=== PATIENT | male | born 2000 ===

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

== ENCOUNTER 2019-02-16 16:00 | Emergency (ER) | payer SELFPAY ==
[2019-02-16 16:00] VITALS: BMI 39.0
[2019-02-16 16:15] VITALS: O2SAT 96
--- NOTE | 2019-02-16 17:23 | C.PDOC ---
History Of Present Illness 18 y/o male presents to the ER for evaluation of head injury which occurred earlier today. Patient states that he tripped and fell hitting his head on a glass table at his home. Patient reports that he had LOC. He notes that he has headache and dizziness. Denies having visual changes, neck pain, CP, SOB, abdominal pain, difficulty ambulating, nausea, and vomiting. Patient states he went to work and told his coworkers what happened and they told him to go the ED for evaluation. - HPI Time Seen by Provider: 02/16/19 16:16 Chief Complaint (Nursing): Trauma History Per: Patient History/Exam Limitations: no limitations Onset/Duration Of Symptoms: Hrs Severity: Moderate Past Medical History Reviewed: Historical Data, Nursing Documentation, Vital Signs Vital Signs: Last Vital Signs Temp 98.7 F 02/16/19 16:08 Pulse 93 H 02/16/19 16:08 Resp 20 02/16/19 16:08 BP 157/112 H 02/16/19 16:08 Pulse Ox 96 02/16/19 16:08 Primary Care Provider: FAMILY PROVIDER,NO - Medical History PMH: No Chronic Diseases Surgical History: No Surg Hx Family History: States: No Known Family Hx - Social History Hx Alcohol Use: No Hx Substance Use: No - Immunization History Hx Tetanus Toxoid Vaccination: Yes Hx Influenza Vaccination: Yes Hx Pneumococcal Vaccination: No Review Of Systems Except As Marked, All Systems Reviewed And Found Negative. Constitutional: Negative for: Fever, Chills Cardiovascular: Negative for: Chest Pain Respiratory: Negative for: Hemoptysis Gastrointestinal: Negative for: Nausea, Vomiting Neurological: Positive for: Headache, Dizziness Physical Exam - Physical Exam Appears: Non-toxic, No Acute Distress Skin: Normal Color, Warm, Dry Head: Atraumatic, Normacephalic Eye(s): bilateral: Normal Inspection, PERRL, EOMI Nose: Normal Oral Mucosa: Moist Neck: Normal ROM, No Midline Cervical Tenderness, Supple Chest: Symmetrical Cardiovascular: Rhythm Regular Respiratory: Normal Breath Sounds, No Rales, No Rhonchi, No Wheezing Gastrointestinal/Abdominal: Normal Exam, Soft, No Tenderness, No Guarding, No Rebound Male Genital: Normal Inspection Extremity: Normal ROM, No Tenderness Neurological/Psych: Oriented x3, Normal Speech, Normal Cognition, Normal Cranial Nerves, No Cerebellar Signs, Normal Motor, Normal Sensation Gait: Steady ED Course And Treatment O2 Sat by Pulse Oximetry: 96 (RA) Pulse Ox Interpretation: Normal - CT Scan/US CT-Head Other Rad Studies (CT/US): Read By Radiologist, Radiology Report Reviewed CT/US Interpretation: Date of service: 02/16/2019. PROCEDURE: CT HEAD WITHOUT CONTRAST. HISTORY: head injury. COMPARISON: Noncontrast head CT performed 06/20/17. TECHNIQUE: Axial computed tomography images were obtained through the head/brain without intravenous contrast. Radiation dose: Total exam DLP = 1175.44 mGy-cm. This CT exam was performed using one or more of the following dose reduction techniques: Automated exposure control, adjustment of the mA and/or kV according to patient size, and/or use of iterative reconstruction technique. FINDINGS: HEMORRHAGE: No intracranial hemorrhage. BRAIN: No mass effect or edema. The luna-white matter differentiation appears intact. Please note that MRI with diffusion imaging is more sensitive in the detection of acute ischemic event. VENTRICLES: No hydrocephalus. CALVARIUM: Unremarkable. PARANASAL SINUSES: Unremarkable as visualized. No significant inflammatory changes. MASTOID AIR CELLS: Unremarkable as visualized. No inflammatory changes. OTHER FINDINGS: None. IMPRESSION: No acute intracranial pathology identified. Medical Decision Making Medical Decision Making: Patient presents w/above history and exam, given this plan is CT of head. CT results d/w patient. Patient states he lives w/his mother. Patient is stable for d/c home and is given verbal and written d/c instructions re head injury w/LOC. He is agreeable w/POC. Disposition Counseled Patient/Family Regarding: Studies Performed, Diagnosis, Need For Followup - Disposition Referrals: [facility] [Outside] [facility] [Outside] Disposition: HOME/ ROUTINE Disposition Time: 17:55 Condition: STABLE Additional Instructions: YVROSE ALMAGUER, thank you for letting us take care of you today. Your provider was Lydia Hodge MD and you were treated for HEAD INJURY. The emergency medical care you received today was directed at your acute symptoms. It may take several days for your symptoms to resolve. Return to the Emergency Department if your symptoms worsen, do not improve, or if you have any other problems. Please contact your doctor or call one of the physicians/clinics you have been referred to that are listed on the Patient Visit Information form that is included in your discharge packet. Bring any paperwork you were given at discharge with you along with any medications you are taking to your follow up visit. Our treatment cannot replace ongoing medical care by a primary care provider outside of the emergency department. [facility] your care today. Instructions: Closed Head Injury (DC), Concussion (ED) Forms: General Discharge Instructions, [employer] (Ethiopian), School Excuse, Work Excuse - Clinical Impression Clinical Impression: Head injury, acute, with loss of consciousness - Scribe Statement The provider has reviewed the documentation as recorded by the Grant Self Provider Attestation: All medical record entries made by the Carlosibe were at my direction and personally dictated by me. I have reviewed the chart and agree that the record accurately reflects my personal performance of the history, physical exam, medical decision making, and the department course for this patient. I have also personally directed, reviewed, and agree with the discharge instructions and disposition.
[2019-02-16 18:27] VITALS: BP 136/83; PULSE 77; RESP 18; TEMP 98.1
== END 2019-02-16 18:27 | disposition home or self-care (01) ==
LOC: C.ER 16:00
DX: S06.9X9A Unspecified intracranial injury with loss of consciousness of unspecified duration, initial encounter (principal); W01.190A Fall on same level from slipping, tripping and stumbling with subsequent striking against furniture, initial encounter; Y92.009 Unspecified place in unspecified non-institutional (private) residence as the place of occurrence of the external cause